=== PATIENT | female | born 1945 | race Caucasian/White ===

== ENCOUNTER 2019-05-30 19:58 | Emergency (ER) | payer OTHER ==
[~2019-05-30] VITALS: Ht 149.9 cm; Wt 65.3 kg
[2019-05-30] MEDS ORDERED: GLIPIZIDE5 MG (20:11)
[2019-05-30] MEDS ORDERED: LOSARTAN POTASS25 MG (20:11)
[2019-05-30] MEDS ORDERED: JANUMET 50-1,01 EACH (20:11)
== END 2019-05-30 21:52 | disposition home or self-care (01) ==
LOC: ER 19:58
DX: M65.841 Other synovitis and tenosynovitis, right hand (principal)

== ENCOUNTER 2022-09-21 07:10 | Outpatient (CLI) | payer OTHER ==
[~2022-09-21 07:10] MED LIST: GLIPIZIDE5 MG; JANUMET 50-1,01 EACH; LOSARTAN POTASS25 MG
== END 2022-09-21 07:14 | disposition home or self-care (01) ==
LOC: TOM 07:10
PROVIDERS: ATTEND Internal Medicine
DX: R19.5 Other fecal abnormalities (principal)